=== PATIENT | female | born 1955 | race Caucasian/White ===

== ENCOUNTER 2017-03-31 08:40 | Observation (INO) | payer BC ==
--- NOTE | 2017-03-26 07:10 | EKG ---
[facility] [address] [facility] [place], [place] [address] Signed Normal sinus rhythm Normal ECG No previous ECGs available Confirmed by CRISTOBAL BRAGA MD ([id number]) on 03/26/2017 7:10:42 AM Electronically Signed By: CRISTOBAL BRAGA MD 03/26/17 0710 PATIENT NAME: MERCEDEZ BELCHER Electrocardiogram DATE OF : 53 PHYSICIAN: CRISTOBAL BRAGA MD REPORT #: [id number] REPORT IS CONFIDENTIAL AND NOT TO BE RELEASED WITHOUT AUTHORIZATION
[~2017-03-31] VITALS: Ht 162.6 cm; Wt 91.6 kg
[~2017-03-31 08:40] MED LIST: ALEVE220 MG PO; OMEPRAZOLE20 MG PO; SERTRALINE HCL50 MG PO; TRAZODONE HCL50 MG PO; VITAMIN D1000 UNIT PO
[2017-03-31] MEDS ORDERED: BLACK COHOSH40 MG PO (08:58)
[2017-03-31] MEDS ORDERED: CALCIUM-MAG-ZI1 EACH PO (08:58)
[2017-03-31] MEDS ORDERED: OCUVITE TABLET1 EAC1 PO (08:59)
[2017-03-31] MEDS ORDERED: MELATONIN5 M2 PO (08:59)
--- NOTE | 2017-03-31 12:06 | NUR ---
03/31/17 1206 Estefani De Luna 1157-PATIENT ARRIVED TO PACU ON 10L MASK O2 SAT 100% NONAROUSABLE NASAL AIRWAY IN RIGHT NOSTRIL. DRESSING TO NECK CDI. 1203-PATIENT OPENS EYES AND FALLS BACK ASLEEP. 8L MASK O2 SAT 100%
--- NOTE | 2017-03-31 13:00 | NUR ---
PT ARRIVES FROM SURGERY WITH RN. PT SATURATING 92% ON ROOM AIR. DRESSING ON THROAT CDI WITH STERI STRIP AND MEPILEX. PT IS AWAKE, ORIENTED, RESTING WITH HOB ELEVATED. SCDS ON. IVF INFUSING AT 85 ML/HR. PT VITALS STABLE.
--- NOTE | 2017-03-31 13:08 | NUR ---
PT IS RESTING IN BED SAFELY WITH CALL LIGHT IN REACH. FIRST SET OF POST OP VITALS TAKEN
--- NOTE | 2017-03-31 13:30 | NUR ---
PT ASSESSMENT COMPLETE. PT STATES THAT SHE HAS 4/10 PAIN IN THROAT, "REALLY SORE". PT ABLE TO TOLERATE JELLO, CRACKERS. ADMINISTERED 1 NORCO PO. PT HAS CALL LIGHT IN REACH, IN ROOM. SPO2 MONITOR ON, PT SATURATING 91% ON ROOM AIR AT THIS TIME. WILL CONTINUE TO MONITOR. PT GIVEN MENU, WATER, INSTRUCTED TO CALL WITH SOB, PAIN, ANY NEEDS.
--- NOTE | 2017-03-31 14:00 | NUR ---
SECOND SET OF POST OP VITALS COMPLETE. PT SITTING UP IN BED. PT DAUGHTER AND IN ROOM. IVF INFUSING, SCDS ON. PT HOB IS ELEVATED. PT HAS NO ADDITIONAL NEEDS. VS STABLE. WILL CONTINUE TO MONITOR. CALL LIGHT IN REACH.
--- NOTE | 2017-03-31 14:35 | NUR ---
PT IS SITTING UP IN BED WORKING ON HER LUNCH. PT ASKED FOR A PAIR OF UNDERWEAR WITH A PAD.
--- NOTE | 2017-03-31 15:05 | NUR ---
ASSISTED PT TO RESTROOM W SBA. PT ABLE TO VOID 200 ML CLEAR URINE. PT BACK TO BED SCDS ON, IVF INFUSING. PT ATE 100% OF LUNCH, DENIES NAUSEA. BROUGHT PT MORE WATER. NO ADDITIONAL REQUESTS, PT HAS CALL LIGHT IN REACH.
--- NOTE | 2017-03-31 16:33 | NUR ---
ADMINISTERED 1 NORCO TABLET FOR 6/10 REPORTED PAIN IN TRHOAT, "SORE". PT ASSESSMENT COMPLETE. PT INCISION SITE COVERED WITH STERI STRIP, MEPILEX, CDI. PT IS 95% ON ROOM AIR. VITALS CONTINUE TO BE STABLE, PT AFEBRILE. PT GIVEN MORE WATER, NO ADDITIONAL REQUESTS. SCDS ON, IVF INFUSING. CALL LIGHT IN REACH.
--- NOTE | 2017-03-31 18:10 | NUR ---
ASSISTED PT TO RESTROOM FOR VOID, PT HAD 300 ML URINE OUT. PT STATES PAIN IS 5/10 AT INCISION SITE. ADMINISTERED 1 NORCO PRN FOR PAIN. PT HAS SCD'S ON. BACK IN BED, SPO2 95%. PT DAUGHTER AND SON NOW IN ROOM. CALL LIGHT IN REACH.
--- NOTE | 2017-03-31 18:47 | NUR ---
PT IS SITTING UP IN BED DRINKING A MILKSHAKE, CALL LIGHT IN REACH. PT DID NOT NEED ANYTHING AT THE MOMENT
--- NOTE | 2017-03-31 18:47 | NUR ---
PT ARRIVED TO FLOOR FROM SURGERY. PT HAS HAD SORENESS IN THROAT AND PAIN AT INCISION SITE THIS AFTERNOON, RECEIVING PRN NORCO X 2. PT HAS AMBULATED TO RESTROOM FOR VOIDS X2. TOLERATING REGULAR DIET, ABSENT OF NAUSEA. PT ON CONTINUOUS PULSE OXIMETRY, ROOM AIR. INCISION SITE HAS BEEN CLEAN DRY AND INTACT. SCDS HAVE BEEN ON WHILE PT IN BED WITH HEAD OF BED ELEVATED.
--- NOTE | 2017-03-31 19:25 | NUR ---
RECEIVED REPORT FROM RN. PATIENT IS RESTING COMFORTABLY IN BED, BREATHING IS EVEN AND UNLABORED. O2 SAT IS 94% ON RA. DENIES NEEDS AT THIS TIME. REPORTS 2/10 PAIN IN INCISION AND IN THROAT. CALL LIGHT WITHIN REACH.
--- NOTE | 2017-03-31 19:45 | NUR ---
CALLED DR. ESCALANTE REGARDING PATIENT'S TIMING FOR TRAZODONE. PATIENT REPORTS SHE TAKES IT AT NIGHT TIME NORMALLY. DR. ESCALANTE CONFIRMED APPROVAL FOR RE-TIMING THE TRAZODONE FOR THE PM. ALSO RECEIVED ORDER FOR PRN CEPACOL LOZENGE FOR SORE THOAT.
--- NOTE | 2017-03-31 20:14 | NUR ---
PATIENT IS RESTING COMFORTABLY IN BED, BREATHING IS EVEN AND UNLABORED. O2 SAT IS 94% ON RA, PULSE IS 75. REPORTS 2/10 PAIN IN INCISION SITE AND THROAT. PRN CEPACOL LOZENGE GIVEN PER EMAR. NO OTHER NEEDS AT THIS TIME. ASSESSMENT DONE. CALL LIGHT WITHIN REACH.
--- NOTE | 2017-03-31 21:15 | NUR ---
patient resting comfortably in bed, breathing is even and unlabored. O2 sat is 92% on RA, pulse is 83. denies needs at this time. pain is 1/10 in incision site. call light within reach.
--- NOTE | 2017-03-31 21:45 | NUR ---
ROUNDED CHARGE. PATIENT HAS NO CONCERNS OR QUESTIONS. CALL LIGHT IN REACH.
--- NOTE | 2017-04-01 00:22 | NUR ---
PATIENT IS RESTING IN BED COMFORTABLY. REPORTS 4/10 PAIN IN THROAT. PRN NORCO GIVEN PER EMAR. SHE STATES "I DON'T LIKE THE CEPACOL LOZENGES." FRESH WATER GIVEN, NO OTHER NEEDS AT THIS TIME. DRESSING IS CDI, BACK OF THROAT HAS NO SIGNS OF BLEEDING, PATIENT IS NOT SWALLOWING EXCESSIVELY. CALL LIGHT WITHIN REACH.
--- NOTE | 2017-04-01 02:15 | NUR ---
PATIENT IS RESTING COMFORTABLY IN BED, BREATHING IS EVEN AND UNLABORED. O2 SAT IS 94% ON RA. SHE REPORTS 3/10 PAIN IN THROAT, BUT STATES "IT ONLY HURTS WHEN I SWALLOW." PATIENT DENIES NEEDS AT THIS TIME. VITALS AND ASSESSMENT DONE. GAVE PATIENT FRESH WATER, CALL LIGHT WITHIN REACH.
--- NOTE | 2017-04-01 05:15 | NUR ---
PATIENT TAKEN TO BATHROOM WITH SBA/NON-SLIP SOCKS. REPORTS 2/10 PAIN IN THROAT, BUT DENIES PAIN MEDICATION AT THIS TIME. ASSESSMENT AND VITALS DONE. CALL LIGHT WITHIN REACH.
--- NOTE | 2017-04-01 05:46 | NUR ---
PATIENT'S NIGHT WAS UNEVENTFUL. SHE HAS BEEN RESTING COMFORTABLY IN BED THROUGHOUT SHIFT. VSS, PAIN IN THROAT HAS BEEN WELL CONTROLLED WITH PRN NORCO. PATIENT DENIES PAIN IN INCISION. DRESSING HAS REMAIND CDI THROUGHOUT. PATIENT HAS BEEN TOLLERATING DIET AND FLUIDS WELL; SHE IS SALINE LOCKED. SHE IS A SBA. NO ACUTE CHANGES FROM BEGINNING OF SHIFT ASSESSMENT.
--- NOTE | 2017-04-01 08:00 | NUR ---
BEDSIDE REPORT DONE WITH SHIFT HANDOFF. PATIENT REPORTS HAVING A GOOD NIGHT. COMPLAINTS OF SORE THROAT, PROVIDED PATIENT WITH A POPSICLE, AND FRESH ICE WATER. PATIENT NOW SITTING UP IN RECLINER, STBY TO BATHROOM, STEADY ON FEET. TOLERATED BREAKFAST WELL. DRESSING TO SURGICAL SITE AT THROAT C/D/I, REPORTS PAIN 3/10 ON PAIN SCALE. ADMINISTERED 1 TAB NORCO FOR PAIN CONTROL. DISCUSSED SIDE EFFECTS OF NORCO, AND HOW TO PREVENT CONSTIPATION.
[2017-04-01] MEDS ORDERED: HYDROCODON-ACE1 EA10 PO (09:13)
--- NOTE | 2017-04-05 11:44 | OR ---
[facility] [address] [place], [place] [address] Signed DATE OF OPERATION: 03/31/2017 SURGEON: Brittani Escalante MD PREOPERATIVE DIAGNOSIS: Left thyroid nodules, 20 mm and 11.2 mm, larger nodule, partially calcified. POSTOPERATIVE DIAGNOSIS: Left thyroid nodules, 20 mm and 11.2 mm, larger nodule, partially calcified. FROZEN PATHOLOGY: Follicular lesion, not otherwise specified. PROCEDURES: Left thyroid lobectomy with isthmusectomy. SURGEON: Brittani Escalante MD. ANESTHESIA: General endotracheal (Zuleima Aldana CRNA) INDICATION: This 61-year-old white woman is a patient of Dr. Gen Bender of [place], [place]. She underwent a CT scan of her neck to assess for issues related to neck pain and neck immobility issues. She was incidentally noted to have a calcified nodule in the left thyroid lobe. The nodule was about 2 cm in size. She subsequently underwent an ultrasound of the thyroid, which showed 2 very small nodules of the right lobe, 4 mm or so, and a 11.2 and 2.0 cm nodule on the left side, which the larger nodule was partially calcified. Mindful that calcified nodules are more commonly malignant, consideration has been made for further treatment. Although fine-needle aspiration biopsy is a consideration given her calcific changes, I have recommended proceeding directly to left thyroid lobectomy, possible total thyroidectomy if the nodules are found to be malignant on frozen pathology. The patient and her family understand the risks of bleeding, infection, recurrent laryngeal nerve injury, unintended parathyroid excision, need for additional treatment including delayed completion, right thyroid lobectomy, and other interventions depending on the pathologic findings, understand this, they wished to proceed. FINDINGS: The thyroid was normal in size overall. She does have a somewhat difficult airway based on a short chin and somewhat immobile neck and a small bite. Intubation was accomplished safely, however. Total left thyroid lobectomy with isthmusectomy was accomplished. The left recurrent laryngeal nerve identified and well preserved. The identity of the Electronically Signed By: BRITTANI ESCALANTE MD 04/05/17 1144 PATIENT NAME: MERCEDEZ BELCHER OPERATIVE REPORT DATE OF : 53 PHYSICIAN: BRITTANI ESCALANTE MD REPORT #: [id number] REPORT IS CONFIDENTIAL AND NOT TO BE RELEASED WITHOUT AUTHORIZATION [facility] [address] [place] [address] Signed parathyroid glands was uncertain and the specimen was sent without known parathyroid tissue with it. Frozen pathology by Dr. Capo Huertas showed the calcific nodule to have a cystic component with thyroid colloid within it. No papillary structures. The upper pole lesion, which was 11.2 mm was soft and follicular in consistency and evaluation and showed no papillary structures to suggest malignancy. At present, the diagnosis is considered benign thyroid nodules. The recurrent nerve was easily identified and preserved and there was no untoward bleeding. DESCRIPTION OF PROCEDURE: The patient was brought to the operating room, given general endotracheal anesthetic. position was maintained. She has limited neck mobility and care was taken to avoid extending too much. A shoulder roll was used. Arms were at the side. The neck was prepared with a chlorhexidine solution and draped sterilely. A natural skin crease in the lower part of the neck was clearly marked with a marking pen. An incision made between the medial heads of the sternocleidomastoid muscle, dissection was carried through the dermis sharply and using electrocautery, the subcutaneous tissue and platysmal layer was divided. Superior and inferior flaps were developed with both blunt electrocautery dissection. Gelpi retractors were placed. The midline strap muscles were elevated and the avascular plane in the central midline incised allowing for retraction of the sternohyoid and sternal thyroid muscles laterally. Using blunt and sharp dissection, the underlying thyroid was revealed. Palpation of the thyroid showed a very dense nodule in the lower pole. The upper pole nodule was soft. Using sharp dissection, the loose areolar tissue lateral to the thyroid was divided. Middle thyroidal veins were isolated and ligated with 4-0 silk ties and divided. With meticulous care, the upper pole blood vessels were individually ligated and divided using 4-0 silk ties. The inferior pole was similarly mobilized. I did not see obvious parathyroid tissue, though loose fatty areolar tissue posteriorly was maintained in situ. With progressive rolling of the thyroid to the midline with the extracapsular technique of Mcnulty, small blood vessels could be secured with 4-0 silk ties. Ultimately, the left recurrent laryngeal nerve was identified and well preserved. Further dissection of the thyroid away from the trachea was undertaken and ligament of Colon resected using minimal amounts of electrocautery and blunt dissection. The avascular plane between the isthmus and the trachea was developed and hemostats were applied to the junction between the isthmus in the right lobe of the thyroid, it fully. The isthmus remnants were secured with 3-0 silk suture. Irrigation was undertaken. There was no untoward bleeding. The recurrent laryngeal nerve easily identified. The specimen was photographed as was the operative site. The inferior nodule was transected with a 15-blade on the back table showing a calcific rim and the central portion with a typical thyroid-type tissue. That was sent for frozen pathology. Irrigation was undertaken. A small amount of Tyler was applied to the superior pole and inferior pole areas, though there was no real bleeding particularly. Strap muscles were Electronically Signed By: BRITTANI ESCALANTE MD 04/05/17 1144 PATIENT NAME: MERCEDEZ BELCHER OPERATIVE REPORT DATE OF : 53 PHYSICIAN: BRITTANI ESCALANTE MD REPORT #: [id number] REPORT IS CONFIDENTIAL AND NOT TO BE RELEASED WITHOUT AUTHORIZATION [facility] [address] [place], [place] [address] Signed reapproximated in midline with interrupted 2-0 Vicryl as was the platysmal layer. The skin was closed with running subcuticular 4-0 Vicryl. Steri-Strips were applied as was a Mepilex silver sponge dressing. An OpSite was not used. By this point, the frozen pathology was returned by Dr. Huertas confirming both nodules to be probably benign, both were follicular lesions including the calcific one and no papillary structures were seen to suggest papillary carcinoma. Final pathology is pending of course. The patient was allowed to emerge from anesthesia, extubated, and transferred to recovery room in good condition having suffered no complication. Sponge, needle, and counts reported as correct x3. MD ISH Cuello/DUSTY /[id number] cc: Jonathon Bender MD Electronically Signed By: BRITTANI ESCALANTE MD 04/05/17 1144 PATIENT NAME: MERCEDEZ BELCHER OPERATIVE REPORT DATE OF : 53 PHYSICIAN: BRITTANI ESCALANTE MD REPORT #: [id number] REPORT IS CONFIDENTIAL AND NOT TO BE RELEASED WITHOUT AUTHORIZATION
== END 2017-04-01 10:20 | disposition home or self-care (01) ==
LOC: DS 08:40 → MS 13:00 → DS 13:00 → MS 04-01 10:20
PROVIDERS: ADMIT Surgery
PROC: 0GTG0ZZ Resection of Left Thyroid Gland Lobe, Open Approach (ICD-10-PCS; 2017-03-31)
PROC: 0GTJ0ZZ Resection of Thyroid Gland Isthmus, Open Approach (ICD-10-PCS; principal; 2017-03-31 09:15)
DX: D34 Benign neoplasm of thyroid gland (principal); K21.9 Gastro-esophageal reflux disease without esophagitis; E11.9 Type 2 diabetes mellitus without complications; E66.9 Obesity, unspecified; Z68.34 Body mass index [BMI] 34.0-34.9, adult; Z87.891 Personal history of nicotine dependence; Z79.1 Long term (current) use of non-steroidal anti-inflammatories (NSAID); Z79.899 Other long term (current) drug therapy; Z87.442 Personal history of urinary calculi
CPT/HCPCS: 00320; 94762; 96374; 96376; G0378; J0330; J0690; J1100; J1885; J2250; J2405; J2704; J3010; J7120

== ENCOUNTER 2021-07-09 09:46 | Day surgery (SDC) | payer MEDICARE ==
[~2021-07-09] VITALS: Ht 162.6 cm; Wt 94.0 kg
[~2021-07-09 09:46] MED LIST changes: +BLACK COHOSH40 MG PO; +CALCIUM-MAG-ZI1 EACH PO; +HYDROCODON-ACE1 EA10 PO; +MELATONIN5 M2 PO; +OCUVITE TABLET1 EAC1 PO
[2021-07-09] MEDS ORDERED: ZINC30 M1 PO (10:16)
--- NOTE | 2021-07-09 11:44 | NUR ---
07/09/21 Peyton4 Estefani De Luna 1140-PATIENT ARRIVED TO PACU ON 2L NC RR EVEN AWAKE DENIES PAIN OR NAUSEA. ABDOMEN SOFT ENCOURAGED TO PASS GAS. IVF INFUSING 1144-PATEINT SLEEPING 2L NC RR EVEN 97%
--- NOTE | 2021-07-09 13:40 | OR ---
[facility] [address] [place], [place] [address] Signed DATE OF OPERATION: 07/09/2021 SURGEON: Brittani Escalante MD PREOPERATIVE DIAGNOSES: 1. History of colon polyp 1972. 2. History of hysterectomy. POSTOPERATIVE DIAGNOSES: 1. Extensive diverticular disease of sigmoid and left colon. 2. Mild proctitis. PROCEDURE: Total colonoscopy to cecum with biopsy of rectum. ANESTHESIA: Intravenous sedation; fentanyl 100 mcg and Versed 5 mg. INDICATION: This 65-year-old white woman is a patient formerly of Dr. Shelton in [place] and is not yet aligned with primary care provider. She is known to me from the past having undergone partial thyroidectomy for benign nodule of the thyroid gland. She has a distant history of polypectomy in 1972. She has no blood per rectum, but does complain sometimes of diarrhea. She has had no constipation she says and she has no family history of colon cancer. She is admitted at this time to undergo colonoscopy. She understands the risk of bleeding, infection, and perforation. FINDINGS: The prep was adequate. Complete colonoscopy was undertaken to the cecum. She had extensive diverticular changes of the sigmoid and left colon. There was no evidence of polyp. She had mild proctitis probably related to the bowel prep. No pathologic findings of colitis were noted. A biopsy was obtained given her diarrhea history and so. DESCRIPTION OF PROCEDURE: The patient was brought to the surgical endoscopy suite and placed in lateral decubitus position, given intravenous sedation to the point of slurred speech and nystagmus with full cardiopulmonary monitoring. Digital rectal examination was undertaken showing no anorectal abnormality. Electronically Signed By: BRITTANI ESCALANTE MD 07/09/21 1340 PATIENT NAME: MERCEDEZ BELCHER OPERATIVE REPORT DATE OF : 53 REPORT #: [id number] PHYSICIAN: BRITTANI ESCALANTE MD PCP: ANNEMARIE SHELTON MD REPORT IS CONFIDENTIAL AND NOT TO BE RELEASED WITHOUT AUTHORIZATION [facility] [address] [place], [place] [address] Signed An Olympus video colonoscope was passed in the rectum and manipulated throughout the colon. Careful and rather slow passage to the sigmoid and left colon was noted due to extensive diverticular changes. The scope was ultimately passed beyond this and promptly to the cecum. The ileocecal valve and appendiceal orifice were normal. Irrigation was undertaken upon withdrawal of the scope and examination throughout showed no sign of polyps or colitis or signs of cancer. Extensive diverticular changes were noted. Retroflexed view of the rectum showed no abnormality other than mild inflammation possibly related to bowel prep itself. It did not have a pathologic appearance otherwise. The biopsy was obtained of the rectum. The scope was removed and the patient was taken to the recovery room in good condition. CONCLUDING DIAGNOSES: 1. Extensive diverticular changes. No evidence of polyps or cancer. 2. Minimal proctitis, possibly bowel prep related. PLAN: Recommend a high-fiber diet. Repeat colonoscopy in 10 years, sooner if symptoms should develop. She will return to the ongoing care of a PCP of her choice in [place], [place]. If she has any other issues, I am available to her. MD ISH Cuello/DUSTY /[id number] cc: Clinic Copies: ~ Electronically Signed By: BRITTANI ESCALANTE MD 07/09/21 1340 PATIENT NAME: MERCEDEZ BELCHER OPERATIVE REPORT DATE OF : 53 REPORT #: [id number] PHYSICIAN: BRITTANI ESCALANTE MD PCP: ANNEMARIE SHELTON MD REPORT IS CONFIDENTIAL AND NOT TO BE RELEASED WITHOUT AUTHORIZATION
--- NOTE | 2021-07-10 13:14 | PATH ---
[facility] [address] [place], [place] [address] Signed SPECIMEN(S): A RECTAL BIOPSY SPECIMEN SOURCE: A. RECTAL BIOPSY CLINICAL HISTORY: Colonoscopy. Postop: Diverticulosis. FINAL PATHOLOGIC DIAGNOSIS: Rectum, biopsy: - Rectal mucosa with no histopathologic abnormality. - Negative for active of chronic proctitis. - Negative for dysplasia or malignancy. NAL:cml:C2NR MICROSCOPIC EXAMINATION: Histologic sections of all submitted blocks are examined by light microscopy. These findings, together with the gross examination, support the pathologic diagnosis. GROSS DESCRIPTION: The specimen, labeled "JG, rectal biopsy," is received in formalin and consists of four mendoza soft tissue fragments that measure 0.2 cm in greatest dimension. The specimen is entirely submitted in cassette (A1). JS (under the direct supervision of a pathologist) The Gross Description was prepared using a voice recognition system. The report was reviewed for accuracy; however, sound-alike word errors, addition and/or deletions may occur. If there is any question about this report, please contact Client Services. PERFORMING LABORATORY: The technical component was performed by [employer], [address] [place] [id number] (Mis Manager: Angie Mello MD; CLIA# [id number]). [facility], [address] [address] (CLIA# [id number]). Diagnostician: Brittany Rodarte MD Pathologist Electronically Signed 07/10/2021 PATIENT NAME: MERCEDEZ BELCHER PATHOLOGY DATE OF : 53 REPORT #: [id number] PHYSICIAN: JENNI PATHOLOGY PCP: ANNEMARIE SHELTON MD REPORT IS CONFIDENTIAL AND NOT TO BE RELEASED WITHOUT AUTHORIZATION [address] [place] [address] Signed Copies: ~ PATIENT NAME: MERCEDEZ BELCHER PATHOLOGY DATE OF : 53 REPORT #: [id number] PHYSICIAN: JENNI PATHOLOGY PCP: ANNEMARIE SHELTON MD REPORT IS CONFIDENTIAL AND NOT TO BE RELEASED WITHOUT AUTHORIZATION
== END 2021-07-09 12:25 | disposition home or self-care (01) ==
LOC: OPS 09:46 → DS 09:59 → OPS 11:00 → DS 14:00 → OPS 14:00
PROVIDERS: ATTEND Surgery
PROC: 0DBP8ZX Excision of Rectum, Via Natural or Artificial Opening Endoscopic, Diagnostic (ICD-10-PCS; principal; 2021-07-09 11:00)
DX: K62.89 Other specified diseases of anus and rectum (principal); K57.30 Diverticulosis of large intestine without perforation or abscess without bleeding
CPT/HCPCS: 99153; G0500; J2250; J3010

== ENCOUNTER 2022-02-10 14:55 | Inpatient (IN) | payer MEDICARE ==
[~2022-02-10] VITALS: Ht 162.6 cm; Wt 90.9 kg
[~2022-02-10 14:55] MED LIST changes: +CALCIUM 500 MG1 EAC6 PO; -CALCIUM-MAG-ZI1 EACH PO; +ZINC30 M1 PO
--- NOTE | 2022-02-10 16:05 | NUR ---
PT ARRIVED VIA [facility]. ALERT AND ORIENTED. TRANSFERED FROM STRETCHER TO BED WITH THREE STAFF MEMEMBERS. REPORT RECIEVED FROM RN AT [facility].
--- NOTE | 2022-02-10 16:30 | NUR ---
INIITAL ASSESSMENTS COMPLETED. PT IS ALERT AND ORIENTED ANSWERING ALL QUESTIONS APPROPRAITELY. SPO2 = 93% ON 3 L NC. RR = 15 AT REST. HEART RATE IN THE 70S. LUNGS ARE CLEAR THROUGHOUT ALL AIR ISAACS. MILD TRACE BILATERAL LOWER LEG EDEMA. SKIN INTACT. PULSES STRONG. PT DENIES ANY PAIN. PLAN OF CARE ESTABLSIHED. WILL CONTINUE TO CLOSELY MONITOR.
--- NOTE | 2022-02-10 16:40 | NUR ---
DR BRAGA IN ROOM AT THIS TIME. PT SOME WHAT SHORT OF BREATH WITH EXERTION BUT CAN CARRY ON A FULL CONVERSATION. PT TITIRATED DOWN TO 3 L NC AT THIS TIME. SPO2 = 93%. PLAN OF CARE ESTABLISHED. ALL PT QUESTIONS ANSWERED. DAUGHTER ALEENA AT BEDSIDE WELL. PLAN OF CARE FOR DAY ESTABLISHED. CALL LIGHT WITHIN REACH. WILL CONTINUE TO CLOSELY MONITOR.
--- NOTE | 2022-02-10 16:44 | NUR ---
Patient is beginning to wake up more. Patient was repositioned and she was able to help by following commands. Patient knows what city she is presently, where she lives, and alert to self. Patient unable to state the year or why she is here. But she was able to say she was in the hospital. Patient offered and accepted Ensure Clear protein drink. Patient stated "this is yucky, can I have a coke?" Patient was educated that once she was able to wake up more, she could have more to eat/drink. Patient was agreeable. TV turned on per patient request and for comfort. All personal items and call light within reach. Will continue to monitor for change in condition.
--- NOTE | 2022-02-10 17:01 | NUR ---
LAB AT ROOM AT THIS TIME FOR BLOOD DRAW
--- NOTE | 2022-02-10 17:34 | NUR ---
PT AMBULATED TO THE BATHROOM. SPO2 DOWN TO 88%. RESPIRATORY RATE IN THE MID 20S AND HEART RATE TO 110 WITH EXERTION. PT BACK IN BED. HEART RATE DOWN INTO THE 80S AND RESPIRATORY RATE NOW WNL. SPO2 = 95%. HEPARIN BOLULS GIVEN AT THIS TIME.
--- NOTE | 2022-02-10 18:31 | NUR ---
APTT OF 33.7. HEPARIN DRIP NOW INFUSING AT 1200 UNITS/HR. PT FAMILY AT BEDSIDE. CALL LIGHT WITHIN REACH. PT DENIES FURTHER NEEDS AT THIS TIME.
--- NOTE | 2022-02-10 19:45 | NUR ---
SHIFT REPORT RECEIVED. PATIENT RESTING IN BED WITH FAMILY IN THE ROOM. DENIED NEEDS AT THIS TIME. HEPARIN INFUSION VERIFIED WITH EMAR, SITE WNL. VS STABLE. PATIENT TOLERATING 3L NC.
--- NOTE | 2022-02-10 21:30 | NUR ---
PATIENT PROVIDED WITH EVENING MEDS. UP TO THE BATHROOM TO VOID, ATTEMPT TO HAVE A BM WITHOUT SUCESS. PATIENT TOLERATED ON 3L NC BUT HAS INCREASED SOB WITH ACTIVITY. PATIENT RECOVERS QUICKLY AT REST. LUNG SOUNDS ARE CLEAR. VS STABLE. IV SITE WNL. NO OTHER CONCERNS. PATIENT ORIENTED TO THE ROOM AND PLAN OF CARE. ALL QUESTIONS ANSWERED. CALL LIGHT IN REACH.
--- NOTE | 2022-02-10 21:44 | EKG ---
[facility] [address] [facility] [place], [place] [address] Signed Normal sinus rhythm Normal ECG When compared with ECG of 25-MAR-2017 12:36, No significant change was found Confirmed by CRISTOBAL BRAGA MD ([id number]) on 02/10/2022 9:43:58 PM Electronically Signed By: CRISTOBAL BRAGA MD 02/10/22 2144 PATIENT NAME: MERCEDEZ BELCHER Electrocardiogram DATE OF : 53 PHYSICIAN: CRISTOBAL BRAGA MD REPORT #: [id number] REPORT IS CONFIDENTIAL AND NOT TO BE RELEASED WITHOUT AUTHORIZATION
--- NOTE | 2022-02-11 00:40 | NUR ---
LAB IN FOR TIMED COAG DRAW
--- NOTE | 2022-02-11 00:45 | NUR ---
PATIENT UP TO THE BSC WITH MINIMAL ASSIST. APPEARS SOB AND RR INCREASED FROM 16-18 TO 22-24. SpO2 >90% ON 3L NC. PATIENT DENIES FEELING SOB. LUNG SOUNDS ARE CLEAR. PATIENT RECOVERED AFTER 3-5 MIN OF REST IN BED. IV HEPARIN PER ORDER, SITE WNL.
--- NOTE | 2022-02-11 01:15 | NUR ---
LAB RESULTS INDICATE HEPARIN BE STOPPED FOR 60 MINS AND RESTARTED AT -200 UNITS LESS PER HOUR. INFUSION PLACED IN STANDBY AT THIS TIME. PATIENT RESTING WITH EYES CLOSED.
--- NOTE | 2022-02-11 02:20 | NUR ---
HEPARIN INFUSION RESTARTED PER ORDERS; SEE EMAR.
--- NOTE | 2022-02-11 05:30 | NUR ---
PATIENT UP TO THE BSC. TOLERATED WELL. DENIES FEELING SOB BUT APPEARS SO AND HAS INCREASED WOB. TOLERATING 3L NC.
--- NOTE | 2022-02-11 07:30 | NUR ---
REPORT RECIEVED, CARE OF PT ASSUMED AT THIS TIME. PT RESTING IN BED. IV FLUIDS INFUSING.
--- NOTE | 2022-02-11 08:00 | NUR ---
RN IN ROOM TO DELIVER PT BREAKFAST AND ASSESS. FAMILY AT BEDSIDE. PT AWAKE AND RESTING IN BED, RR UNLABORED WITHOUT MOVEMENT. BREATH SOUNDS CLEAR BUT TIGHT IN UPPER AIRWAY, 3L NC WITH SP02 96%. PT DENIES SOB BUT STATES SHE GETS TIRED EASILY WITH ANY MOVEMENT. ASSESSMENT WNL OTHERWISE. IV SITE TOLERATING HEPARIN INFUSION WITHOUT DIFFICULTY, CURRENT RATE 1000 U/H. CALL LIGHT IN REACH.
--- NOTE | 2022-02-11 08:10 | NUR ---
Spoke with pt, spouse, and daughter. Pt denies needs and plans on dc to home when cleared medically. She does not use any DME, received a portable 02 concentrator over the weekend. May only need 02 on dc. Pt. has a very supportive family will medical people. Plan on dc to home when cleared medically.
--- NOTE | 2022-02-11 08:39 | NUR ---
PATIENT AWAKE IN BED, VITALS AND I&OS CHARTED. FAMILY IN ROOM. DR VISITING WITH FAMILY. FACE AND HANDS WASHED. CALL LIGHT IN EASY REACH
--- NOTE | 2022-02-11 08:44 | NUR ---
HEPARIN DRIP UNCHANGED WITH PTT VALUE BACK AT 90.2. WILL REDRAW NEXT AM PER ORDERS. 90% BREAKFAST EATEN. AM CARE PROVIDED. MD ROUNDING ON PT - FAMILY AND PT DENY QUESTIONS WITH POC. EDUCATION PROVIDED ON BEDREST AND LOW ACTIVITY EXPECTATIONS WHILE WAITING FOR PE'S TO RESOLVE AND ECHO RESULTS.
--- NOTE | 2022-02-11 09:39 | NUR ---
RN IN ROOM ROUNDING ON PT - PT DENIES NEEDS, HOB ELEVATED USING PHONE. FAMILY AT BEDSIDE. CALL LIGHT IN REACH.
--- NOTE | 2022-02-11 11:39 | NUR ---
RN IN ROOM TO ROUND ON PT - LUNCH PROVIDED. PT SITTING UP IN BED VISITING WITH DAUGHTER. PT DENIES PAIN AND SOB. VS STABLE. STATES SHE IS "SWEATY" - NO DIAPHORISES NOTED ON FACE. CALL LIGHT IN REACH.
[2022-02-11] MEDS ORDERED: VENTOLIN HFA18 GM INH (11:49)
[2022-02-11] MEDS ORDERED: LEVOFLOXACIN500 MG PO (11:49)
[2022-02-11] MEDS ORDERED: FENOFIBRATE145 MG PO (11:50)
[2022-02-11] MEDS ORDERED: SERTRALINE HCL100 MG PO (11:51)
--- NOTE | 2022-02-11 12:00 | NUR ---
THIS SENIOR FIRE PROTECTION ENGINEER IN ROOM, PATIENT UP TO BSC WITH SBA. PATIENT SHORT OF BREATH BUT O2 SATS REMAINED IN 90'S. 200MIL OUTPUT. BEDBATH PROVIDED, PATIENT ASSISTING. DAUGHTER IN ROOM. PATIENT BACK IN BED AT THIS TIME, LINENS CHANGED. CALL LIGHT AND PERSONAL ITEM IN EASY REACH.
--- NOTE | 2022-02-11 12:45 | NUR ---
RN IN ROOM TO ASSESS PT - PT RESTING IN BED WITH HOB ELEVATED VISITING WITH FAMILY. PT UP TO BSC WITH HOG SLAUGHTERER CAUSING INCREASED SOB, SPO2 REMAINS STABLE ON 3l NC. PT DENIES PAIN. FAN PLACED PER PT REQUEST, CLAMMY. HEPARIN DRIP PATENT, RATE UNCHANGED. FAMILY DENIES QUESTIONS, CALL LIGHT IN REACH.
--- NOTE | 2022-02-11 12:49 | NUR ---
PT ALERT, ORIENTED AND SUPPORTED BY FAMILY. PT USING O2 NC IS VERY PLEASANT AND SEEMS VERY PLEASED WITH HER CARE. HER FAMILY SAID THE SAME. THE PT WAS VERY UNHAPPY WITH THE FOOD SHE HAD BEEN SERVED-HER FAMILY ALL KNODDED IN AGREEMENT. PT REQUESTED VISIT FROM [facility], WILL MAKE THIS HAPPEN. PT DID REQUEST PRAYER, LEFT G.POST AND WILL FOLLOW
--- NOTE | 2022-02-11 14:32 | NUR ---
RN ROUNDING ON PT - ASLEEP IN BED ON SIDE, DAUGHTER AT BEDSIDE, DENIES NEEDS AT THIS TIME. CALL LIGHT IN REACH.
--- NOTE | 2022-02-11 16:01 | NUR ---
RN IN ROOM TO ASSESS PT - PT RESTING IN BED AWAKE UPON ENTRY. AMBULATES TO BATHROOM STANDBY ASSIST, SOB WITH EXCERTION BUT SPO2 STABLE ON NOT DROPPING. HR UP TO 120'S WITH AMBULATION AND DOWN TO 80'S WITHIN 2 MINUTES AFTER BACK TO BED. LUNG SOUNDS UNCHANGED, CLEAR BUT TIGHT. PT DENIES PAIN OR DIZZINESS WITH AMBULATION. FAMILY REMAIN AT BEDSIDE. CALL LIGHT IN REACH.
[2022-02-11] MEDS ORDERED: PREDNISONE20 MG PO (16:53)
--- NOTE | 2022-02-11 16:54 | NUR ---
MED REC COMPLETE
--- NOTE | 2022-02-11 17:47 | NUR ---
DAUGHTER MODE UPDATED ON PT STATUS AFTER CALLING TO UNIT.
--- NOTE | 2022-02-11 18:45 | NUR ---
RN IN ROOM TO ROUND ON PT - AMBULATES TO BATHROOM, BM PRODUCED. REMAINS ON 3L VIA NC WITH STABLE SPO2 IN HIGH 90'S EVEN WITH AMBULATION. HR RECOVERS QUICKLY WITH REST, SOB REMAINS WITH EXCERTION. HEPARIN DRIP PATENT. DAUGHTER AT BEDSIDE, PT DENIES FURTHER NEEDS.
--- NOTE | 2022-02-11 21:00 | NUR ---
PATIENT ALERT AND ORIENTED X4. RESTING IN BED. ALL BELONGINGS IN REACH. CALL LIGHT IN REACH. DENIES PAIN. REPORTS SOB. VS STABLE. ON 2LPM VIA NC.
--- NOTE | 2022-02-11 22:59 | NUR ---
PATIENT RESTING IN BED WITH EYES CLOSED. RESPIRATIONS EVEN AND UNLABORED. CALL LIGHT IN REACH. VS STABLE.
--- NOTE | 2022-02-12 04:14 | NUR ---
PATIENT RESTING IN BED WITH EYES CLOSED. RESPIRATIONS EVEN AND UNLABORED. VS STABLE. CALL LIGHT IN REACH AND PATIENT CAN MAKE NEEDS KNOWN.
--- NOTE | 2022-02-12 05:28 | NUR ---
LAB AT BEDSIDE FOR AM LABS.
--- NOTE | 2022-02-12 05:35 | NUR ---
PATIENT INDEPENDENTLY AMBULATED TO BEDSIDE COMMODE. URINATED. REPORTS GETTING A GOOD NIGHTS SLEEP AND FEELING LESS SOB THIS AM.
--- NOTE | 2022-02-12 07:33 | NUR ---
REPORT RECIEVED, CARE OF PT ASSUMED AT THIS TIME.
[2022-02-12] MEDS ORDERED: ELIQUIS5 M1 PO (07:37)
--- NOTE | 2022-02-12 07:51 | NUR ---
DR BRAGA IN ROOM AT THIS TIME.
--- NOTE | 2022-02-12 08:02 | NUR ---
ASSESSMENT COMPLETED. PT UP AT SIDE OF BED EATING BREAKFAST. MILD SHORTNESS OF BREATH WITH EXERTION NOTED. HEART RATE WNL. LUNGS FAIRLY CLEAR THROUGHOUT. HEPARIN DRIP STILL INFUSING AT 1000 UNITS/HR. PT UNDERSTANDS THE PLAN OF CARE TO START ELIQUIS TODAY AND POSSIBLY TRANSITION TO THE MEDICAL FLOOR. CALL LIGHT WITHIN REACH. WILL CONTINUE TO MONITOR
--- NOTE | 2022-02-12 08:22 | NUR ---
ECHO REPORT SHOWN TO DR BRAGA AT THIS TIME. PT DONE WITH BREAKFAST. NOW RESTING IN BED. DENIES NEEDS AT THIS TIME.
--- NOTE | 2022-02-12 08:30 | NUR ---
PATIENT UP TO THE BATHROOM AND NOW RESTING IN THE CHAIR WITH PILLOW SUPPORT. PATIENT STOOD AND WALKED WELL. PATIENT STATES SHE IS A LITTLE SOB, BUT NO LIKE SHE WAS SEVERAL DAYS AGO. PER PATIENT HER SOB HAS CONTINUED TO IMPROVE. NO OTHER NEEDS AT THIS TIME. WILL CONTINUE TO CLOSELY MONITOR. CALL LIGHT IN REACH. WARM BLANKET PROVIDED.
--- NOTE | 2022-02-12 09:31 | NUR ---
SPOKE WITH PHARMACIST AMINAH. PER AMINAH GTT CAN BE STOPPED AFTER ELIQUIS STARTED. NO OVERLAP TIME IS INDICATED FOR THESE MEDICATIONS. PATIENT GTT STOPPED AT THIS TIME. ELIQUIS GIVEN AROUD 0900. WILL CONTINUE TO CLOSELY MONITOR. PATIENT HAS FAMILY VISITING AT THE [facility].
--- NOTE | 2022-02-12 10:03 | NUR ---
DR BRAGA IN ROOM TO FURTHER DISCUSS ECHO RESULTS WITH PT AND THE PLAN OF CARE FOR MOVING TO THE MEDICAL FLOOR. ALL QUESTIONS ANSWERED.
--- NOTE | 2022-02-12 10:49 | NUR ---
REPORT RECEIVED FROM ALICE TOVAR. AWAITING TRANSFER.
--- NOTE | 2022-02-12 11:14 | NUR ---
PT ARRIVED TO ROOM 113 VIA ARMCHAIR WITH FAMILY AND PERSONAL BELONGINGS. O2 94% ON RA, RR 22, RESP EVEN AND UNLABORED. CALL LIGHT IN REACH.
--- NOTE | 2022-02-12 11:28 | NUR ---
PT SITTING UP IN CHAIR EATING LUNCH WITH FAMILY. RESP SOMEWHAT LABORED WHILE EATING. PT ALSO BRUSHED TEETH. RR 22, O2 94% ON 2 L PER NC. NO FURTHER NEEDS AT THIS TIME.
--- NOTE | 2022-02-12 11:45 | NUR ---
PT SITTING UP IN CHAIR-FAMILY AT HER SIDE. O2 NC IN USE, PT INFORMED ME THAT SHE SLEPT WELL LAST NIGHT,BUT THE FOOD IS STILL BAD. PLANNS ON POSTING ABOUT HER IMPRESSION OF THE BOBBIN FIXER ON FB. PT WOULD LIKE TO HAVE ENGLISH INSTRUCTOR VISIT WILL MAKE THAT HAPPEN. GAVE BLESSING AND WILL FOLLOW
--- NOTE | 2022-02-12 13:15 | NUR ---
PT'S DAUGHTER CAME TO NURSE'S STATION ASKING FOR PORTABLE OXYGEN SO PT COULD GO FOR A WALK. O2 SET UP ON WHEELCHAIR AND PT AMBULATED AROUND HALF THE UNIT BEFORE RETURNING TO ROOM. SOB INCREASED, BUT PT APPEARED TO TOLERATE EXERTION WELL.
--- NOTE | 2022-02-12 13:30 | NUR ---
PATIENT BACK IN BED AFTER SHOWER, VITALS AND I/O'S COMPLETED. IN ROOM, PT HAS NO OTHER NEEEDS AT THIS TIME. CALL LIGHT WITHIN REACH.
--- NOTE | 2022-02-12 13:41 | NUR ---
ROUNDING ON PT. FAMILY AT BEDSIDE. PT. STATES SHE HAD A SHOWER AND 'FEELS GOOD" DENIES NEEDS. LEFT RESTING WITH CALL LIGHT IN REACH.
--- NOTE | 2022-02-12 15:36 | NUR ---
Rounded on pt, O2 95% on 2L per NC. Pt c/o runny nose from O2 running. Trial titration to 1.5L initiated, continous spO2 monitor applied. Work of breathing is improved from a few hours ago, resp easy, RR 18. Pt resting in bed with family at bedside. Call light in reach.
--- NOTE | 2022-02-12 17:35 | NUR ---
PATIENT LAYING IN BED AFTER DINNER. VITALS AND I/O CHARTED. FRESH WATER GIVEN TO PATIENT. NO FURTHER ASSISTANCE NEEDED. CALL LIGHT IS WITHIN REACH.
--- NOTE | 2022-02-12 17:50 | NUR ---
ASSESSMENT DONE. PT SITTING UP IN BED WATCHING TV WITH . O2 SAT 96% ON 2L, RESP EVEN AND UNLABORED, O2 95%. PT AMBULATED TO BATHROOM WITH SBA, SOB ON AMBULATION O2 93% RR 24 AFTER RETURNING TO BED. RECOVERED IN LESS THAN 3 MINUTES. NO FURTHER NEEDS AT THIS TIME, CALL LIGHT IN REACH, AT BEDSIDE.
--- NOTE | 2022-02-12 18:26 | NUR ---
PT ON O2 TITRATION TRIAL OF 1.5L PER NC. SATTING 94% SITTING UP IN BED WATCHING TV. RR 18.RESP EVEN, SLIGHTLY INCREASED WOB, PT DENIES SOB.
--- NOTE | 2022-02-12 21:00 | NUR ---
IN TO GET VS, NO FURTHER NEEDS AT THIS TIME
--- NOTE | 2022-02-12 21:30 | NUR ---
RT GURJIT IN ROOM, TITRATED PATIENT TO ROOM AIR. OXYGEN SATURATION 90%, PATIENT APPEARS TO BE BREATHING EVEN AND REGULAR. PATIENT THEN UP TO BATHROOM, SPOT CHECK OXYGEN SAT 88% WHILE UP TO BATHROOM. GURJIT RT THEN AMBULATED PATIENT DOWN TO NURSING STATION OXYGEN SAT MAINTAINED AT 88%, WITH SOME REST AT NURSING STATION RECOVERED BACK TO 90% ON RA. BACK TO ROOM PATIENT MAINTAINED AT 90% ROOM AIR. PLACED PULSE OX ON PATIENT, AND WILL PROVIDE SPOT CHECK WHILE SLEEPING. ALSO PROVIDED PATIENT WITH INCENTIVE SPIROMETER, PATIENT ABLE TO DEMONSTRATE BRINGING WAFER TO 1700 ML
--- NOTE | 2022-02-13 00:49 | NUR ---
INTO CHECK ON PATIENT, CPOX 85% ON ROOM AIR. PLACED PATIENT ON 2L NC, NOTIFIED RT GURJIT. OXYGEN SAT 92% 2LNC.
--- NOTE | 2022-02-13 03:20 | NUR ---
PT UP TO THE TOILET, BACK TO BED, O2 91-93%, RN UPDATED, NO FURTHER NEEDS AT THIS TIME
--- NOTE | 2022-02-13 06:48 | NUR ---
PATIENT UP TO AMBULATE IN [place] ABLE TO MAINTAIN OXYGEN 88-90% PERCENT ON ROOM AIR. AT REST PATIENT 92% ON ROOM AIR. HOWEVER, WHEN SLEEPING O2 SATURATION DESAT TO 85%, PLACED PATIENT ON 2L NC, PATIENT SAT 95%. PATIENT APPEARED TO REST WELL THROUGHOUT NIGHT. VOIDED WELL . THIS MORNING PROVIDED SNACK BEFORE ADMINISTERING LEVAQUIN PO.
--- NOTE | 2022-02-13 07:30 | NUR ---
Report received, care resumed. Pt resting in bed on 1L O2 per NC. O2 sat 95%, resp even and unlabored. call light in reach.
--- NOTE | 2022-02-13 08:03 | NUR ---
Assessment done, mornign meds given. Resp even and unlabored, pt on 1L O2 per nc, resp even, O2 95%. Pt brushed teeth and got up to armchair with SBA. O2 93% with activity, RR 20, resp even, WOB slightly increased from at rest. Pt denies pain, feeling short of breath. Call light in reach, awaiting breakfast.
--- NOTE | 2022-02-13 08:59 | NUR ---
PATIENT IS UP IN HER CHAIR EATING BREAKFAST. SHE ALSO BRUSED HER TEETH AND WASHED HER FACE. BED LINENS CHANGED.
--- NOTE | 2022-02-13 10:52 | NUR ---
ROUNDED ON PT, O2 SAT NOTED TO BE 91% ON 1L PER NC SITTING UPRIGHT IN CHAIR. PT ENCOURAGED TO TAKE FULL BREATHS, O2 INCREASED TO 96% IMMEDIATELY. PT AND DAUGHTER SAW THIS INCREASE AND EXPRESSED UNDERSTANDING ON THE IMPORTANCE OF GOOD RESPERATORY CARE. NO FURTHER NEEDS AT THIS TIME, CALL LIGHT IN REACH.
[2022-02-13] MEDS ORDERED: ELIQUIS5 M1 PO (12:39)
--- NOTE | 2022-02-13 13:08 | NUR ---
ALL DISCHARGE INSTRUCTIONS REVIEWED WITH PT AND QUESTIONS ANSWERED. IV REMOVED BY FORKLIFT TECHNICIAN AND VITALS STABLE. SHE DENIES SOB AND PAIN.
--- NOTE | 2022-02-13 13:20 | NUR ---
PT. LEFT WITH ALL BELONGINGS VIA WHEELCHAIR WITH CONCRETE FINISHING MACHINE OPERATOR.
== END 2022-02-13 13:18 | disposition home or self-care (01) | DRG 175 ==
LOC: CCU 14:55 → MS 16:06
PROVIDERS: ADMIT Internal Medicine; ATTEND Internal Medicine
DX: I26.09 Other pulmonary embolism with acute cor pulmonale (principal); K21.9 Gastro-esophageal reflux disease without esophagitis; E78.5 Hyperlipidemia, unspecified; F39 Unspecified mood [affective] disorder; G47.00 Insomnia, unspecified; Z90.89 Acquired absence of other organs; Z98.890 Other specified postprocedural states; Z79.899 Other long term (current) drug therapy
CPT/HCPCS: 36415; 80048; 85025; 85610; 85730; 93005; 93010; 93306; 94760; 94761; 94762; J1644